=== PATIENT | male | born 1955 | race Caucasian/White ===

== ENCOUNTER → 2021-11-23 | Outpatient (CLI) | payer MEDICARE ==
[2021-11-23 12:09] LABS: BASOPHILS % (AUTO) 1.8 % (0.0-5.0); EOSINOPHILS % (AUTO) 3.7 % (0.0-8.0); HEMATOCRIT 31.9 % (42-54); LYMPHOCYTES % (AUTO) 18.3 % (21.0-51.0); MEAN CORPUSCULAR HEMOGLOBIN 20.9 pg (27.0-33.0); MEAN CORPUSCULAR HGB CONC 27.3 g/dL (32.0-36.0); MEAN CORPUSCULAR VOLUME 76.7 fL (79-99); MONOCYTES % (AUTO) 14.2 % (3.0-13.0); NEUTROPHILS % (AUTO) 61.7 % (40.0-77.0); PLATELET COUNT (AUTO) 294 K/uL (130-400); RED BLOOD CELL COUNT(AUTO) 4.16 MIL/uL (4.50-6.20); WHITE BLOOD COUNT (AUTO) 6.8 K/uL (4.8-10.8)
[2021-11-23 12:19] LABS: INR 1.03 (0.85-1.15); PROTHROMBIN TIME 11.2 SEC (9.6-11.6)
[2021-11-23 12:20] LABS: PARTIAL THROMBOPLASTIN TIME 25.1 SEC (26.3-35.5)
[2021-11-23 12:25] LABS: ALBUMIN 3.6 g/dL (3.5-5.0); BILIRUBIN,DIRECT 0.1 mg/dL (0.0-0.3); BILIRUBIN,TOTAL 0.2 mg/dL (0.2-1.0); CREATININE 0.9 mg/dL (0.5-1.5); POTASSIUM 4.6 mmol/L (3.5-5.1); TOTAL PROTEIN, SERUM 7.6 g/dL (6.0-8.3)
== END | disposition home or self-care (01) ==
LOC: LAB 11:25
PROVIDERS: ATTEND Nurse Practitioner Family
DX: C16.9 Malignant neoplasm of stomach, unspecified (principal); E66.9 Obesity, unspecified; R06.02 Shortness of breath
CPT/HCPCS: 36415; 80053; 80061; 82248; 82378; 85025; 85610; 85730

== ENCOUNTER → 2021-11-24 | Outpatient (CLI) | payer MEDICARE ==
[~2021-11-24] MED LIST: DIATR MEGLU/DIATRIZOATE SODIUM 30 ML BOTTLE ONE; IOHEXOL 350 MG/ML 100ML INFUS..BTL IV ONE
== END | disposition home or self-care (01) ==
LOC: RAH 07:02
PROVIDERS: ATTEND Surgery Surgical Oncology
DX: C16.9 Malignant neoplasm of stomach, unspecified (principal); K44.9 Diaphragmatic hernia without obstruction or gangrene; K57.30 Diverticulosis of large intestine without perforation or abscess without bleeding
CPT/HCPCS: 71260; 74177; Q9963; Q9967

== ENCOUNTER → 2023-02-28 | Outpatient (CLI) | payer MEDICARE | END | disposition home or self-care (01) | LOC: RAH 09:13 | PROVIDERS: ATTEND Student in an Organized Health Care Education/Training Program | DX: M47.816 Spondylosis without myelopathy or radiculopathy, lumbar region (principal); M51.36 Other intervertebral disc degeneration, lumbar region | CPT/HCPCS: 72148 ==

== ENCOUNTER → 2025-01-21 | Outpatient (CLI) | payer MEDICARE ==
--- NOTE | 2025-01-21 14:40 | HMCIMG ---
CT CHEST HIGH RESOLUTION (WO) HISTORY: Interstitial pulmonary disease COMPARISON: None TECHNIQUE: Multiple sequential axial images of the chest were obtained from the thoracic inlet through upper abdomen. Patient was not given contrast through intravenous route. High resolution images of the chest were obtained. FINDINGS: There are bilateral groundglass pulmonary infiltrates. There are interstitial fibrosis with bronchiectasis. Coronary arterial calcifications are seen No pleural effusion or pericardial effusion is seen. There is no evidence of pneumothorax. There are normal size mediastinal and hilar lymph nodes. The heart is not enlarged. Degenerative changes of the thoracolumbar spine are present. There is no evidence of adrenal nodule. There is a small hiatal hernia. Coronary arterial calcifications IMPRESSION: 1. Lateral groundglass pulmonary infiltrates. Interstitial fibrosis with bronchiectasis. CT was performed with one or more following dose reduction techniques: automated exposure control, adjustment of the mA and kv according to patient's size, or use of a iterative reconstruction technique.
== END | disposition home or self-care (01) ==
LOC: RAH 13:18
PROVIDERS: ATTEND Internal Medicine Pulmonary Disease
DX: J47.9 Bronchiectasis, uncomplicated (principal); J84.10 Pulmonary fibrosis, unspecified; R91.8 Other nonspecific abnormal finding of lung field; K44.9 Diaphragmatic hernia without obstruction or gangrene; I25.10 Atherosclerotic heart disease of native coronary artery without angina pectoris; J84.9 Interstitial pulmonary disease, unspecified; M47.815 Spondylosis without myelopathy or radiculopathy, thoracolumbar region
CPT/HCPCS: 71250

== ENCOUNTER 2025-10-09 10:27 | Emergency (ER) | payer MEDICARE ==
[~2025-10-09] VITALS: Ht 167.6 cm; Wt 50.8 kg
[2025-10-09] MEDS: 0.9%NACL 1000ML 1,000 ML IV ONE (11:00)
--- NOTE | 2025-10-09 11:00 | ERN ---
General Chief Complaint: Low Back Pain/Injury Stated Complaint: KIDNEY PAIN Time Seen by MD: 10:35 Source: patient History of Present Illness Initial Comments The patient is a 70-year-old male with past medical history of colorectal cancer who came to the ER with complain of bilateral flank pain. As per the patient, the patient was getting it therapy ABD for5 weeks for his cancer and due to the pain he was taking pain medication. Approximately 10 weeks back the patient developed severe bilateral flank pain. The pain is severe in nature and due to with the patient can not move. The patient is a established patient with Dr. Kenneth fried. Timing/Duration: getting worse Severity: severe Modifying Factors: improves with movement Associated Symptoms: loss of appetite, other Allergies: Coded Allergies: Tetracyclines (Unverified Allergy, Unknown, 10/09/25) Home Meds Active Scripts Oxycodone HCl/Acetaminophen (Oxycodone-Acetaminophen 10-325) 10 Mg-325 Mg Tablet, 1 TAB PO Q4HPRN PRN for pain for 10 Days, #40 TAB 0 Refills Prov:HUAN HAMMONDS 10/09/25 Past Medical History Past Medical History: Other Medical History Other: RECTAL TUMOR Past Surgical History: Other Surgical History Other: STOMACH REMOVAL Physical Exam General Appearance: (+) mild distress, (+) moderate distress Orientation: (+) alert, (+) oriented x 3 Head/Face Trauma: No Ear, Nose, Throat: (-) hearing grossly normal, (-) normal ENT inspection, (-) moist mucous membraine, (-) normal pharynx, (-) normal TM, (-) abnormal TM, (-) pharyngeal erythema, (-) sinus drainange, (-) sinus pain, (-) tonsillar exudate, (-) tonsillar swelling, (-) nasal drip, (-) nasal congestion, (-) hearing decreased, (-) dry mucous membraine, (-) other documentation Neck: (-) normal inspection, (-) supple, (-) full range of motion, (-) no JVD, (-) non-tender, (-) no bruit, (-) tender, (-) limited range of motion, (-) tender lateral, (-) tender midline, (-) thyromegaly, (-) lymphadenopathy, (-) masses, (-) carotid bruit, (-) other documentaion Respiratory: (-) chest non-tender, (-) lungs clear, (-) well ventilated, (-) decreased breath sounds, (-) retractions, (-) abnormal breath sound, (-) crackles, (-) plerual rub, (-) rales, (-) rhonchi, (-) stridor, (-) wheezing, (- ) other documentation Heart: (-) regular, (-) no gallop, (-) murmur, (-) irregular, (-) bradycardia, (-) tachycardia, (-) systolic murmur, (-) diastolic murmur, (-) extra beats, (-) friction rub, (-) gallop/S3, (-) gallop/S4, (-) other documentation Vascular: (-) no edema, (-) normal peripheral pulse, (-) no JVD, (-) abdominal aorta, (-) abnormal peripheral pulse, (-) carotid bruit, (-) edema, (-) JVD, (-) varicose vein, (-) other documentation Gastrointestinal: (-) soft, (-) non-tender, (-) no organomegaly, (-) bowel sound present, (-) distended, (-) tender, (-) abnormal bowel sounds, (-) bowel sound absent, (-) rebound, (-) brown's sign, (-) guarding, (-) hernia, (-) mass, (-) pulsatile mass, (-) CVA tenderness, (-) hepatomegaly, (-) spleenomegaly, (-) other documentation, (-) McBerney's, (-) other documentation Results Laboratory and Microbiology Lab and Micro Result Laboratory Tests Test 10/09/25 10:57 10/09/25 13:48 White Blood Count 5.5 K/uL (4.8-10.8) Red Blood Count 4.35 MIL/uL (4.50-6.20) L Hemoglobin 13.3 g/dL (14.0-18.0) L Hematocrit 40.0 % (42-54) L Mean Corpuscular Volume 92.0 fL (79-99) Mean Corpuscular Hemoglobin 30.6 pg (27.0-33.0) Mean Corpuscular Hemoglobin Concent 33.3 g/dL (32.0-36.0) Red Cell Distribution Width 21.3 % (11.0-15.5) H Platelet Count 224 K/uL (130-400) Mean Platelet Volume 10.5 fL (7.5-10.5) Nucleated Red Blood Cells 0.0 % (0.0-0.19) Red Blood Cell Morphology See comments Sodium Level 139 mmol/L (136-145) Potassium Level 4.1 mmol/L (3.5-5.1) Chloride Level 106 mmol/L (101-111) Carbon Dioxide Level 28 mmol/L (21-32) Blood Urea Nitrogen 15 mg/dL (7-18) Creatinine 1.0 mg/dL (0.5-1.3) Glomerular Filtration Rate Calc 80 mL/min (>90) Random Glucose 102 mg/dL (70-105) Lactic Acid Level 1.5 mmol/L (0.8-2.5) Total Calcium 8.2 mg/dL (8.5-10.1) L Urine Color LIGHT-YELLOW (YELLOW) Urine Appearance CLEAR (CLEAR) Urine pH 6.0 (5.0-8.0) Urine Specific [place] >1.040 (1.001-1.031) Urine Protein NEGATIVE mg/dL (NEGATIVE) Urine Glucose (UA) NEGATIVE mg/dL (NEGATIVE) Urine Ketones 5 mg/dL (NEGATIVE) H Urine Occult Blood NEGATIVE (NEGATIVE) Urine Nitrate NEGATIVE (NEGATIVE) Urine Bilirubin NEGATIVE mg/dL (NEGATIVE) Urine Urobilinogen 0.2 mg/dL (0.2-1.0) Urine Leukocyte Esterase NEGATIVE Rachell/uL Urine RBC 2-5 /HPF (0-1) H Urine WBC 2-5 /HPF (0-1) H Urine Squamous Epithelial Cells Rare /HPF (0-2) Urine Bacteria None Seen /HPF (None Seen) MDM MDM: Differential diagnosis: Cancer related pain, kidney stones Patient was seen and examined in the ER. The patient had bilateral flank pain for which a CT scan was done that was unremarkable. Patient's CBC, BMP, urinalysis were unremarkable. As per patient has a history of colorectal cancer the pain most likely associated with that The patient takes oxycodone/acetaminophen- 5mg/325mg for the pain. The patient was given the option to stay in the hospital for 24 hours or more for pain management that he can get IV pain medications that we can be discharged with a stronger pain med and follow up with Yolnada Wells. The patient preferred to get discharged with a stronger medication and follow up with the oncologist. The patient was discharged with oxycodone 10 mg/acetaminophen 325 mg ED Course Orders Procedure Category Date Status Time Cbc Without LAB 10/09/25 Complete Differential 10:50 Basic Metabolic Panel LAB 10/09/25 Complete 10:50 Urinalysis Profile LAB 10/09/25 Complete 10:50 0.9%Nacl 1000ml (Ns PHA 10/09/25 Complete 1000ml) 11:00 Hydromorphone 1 Mg PHA 10/09/25 Complete Inj (Dilaudid 1mg Inj 11:00 Ct Abdomen/Pelvis CT 10/09/25 Resulted W/Contrast 10:50 Lactic Acid LAB 10/09/25 Complete 10:56 Iohexol (Omnipaque) PHA 10/09/25 Complete 11:57 Current Medications Medications (Trade) Dose Ordered Sig/Romeo Route PRN Reason Start Time Stop Time Status Last Admin Dose Admin Hydromorphone HCl (DiLAUDid 1MG INJ) 1 mg ONCE ONCE IVP 10/09/25 11:00 10/09/25 11:01 DC 10/09/25 11:14 Iohexol (Omnipaque) 75 ml STK-MED ONCE IV 10/09/25 11:57 10/09/25 11:57 DC Sodium Chloride 1,000 ml @ 0 mls/hr ONCE ONCE IV 10/09/25 11:00 10/09/25 11:01 DC 10/09/25 11:00 Vital Signs Date Time Temp Pulse Resp B/P (MAP) Pulse Ox O2 Delivery O2 Flow Rate FiO2 10/09/25 14:56 98.1 68 19 135/72 99 Room Air* 0 21 10/09/25 11:02 98.4 71 16 118/70 100 Room Air* 0 21 10/09/25 10:28 98.2 91 20 98/71 99 Room Air DX & DISP Disposition: Discharge Departure Impression: Primary Impression: Cancer related pain Condition: Stable Scripts Oxycodone HCl/Acetaminophen (Oxycodone-Acetaminophen 10-325) 10 Mg-325 Mg Tablet 1 TAB PO Q4HPRN PRN for pain for 10 Days, #40 TAB 0 Refills Prov: HUAN HAMMONDS DO 10/09/25 Additional Instructions: *Follow up with your primary care physician in 2 - 3 days after discharge. *Continue all medications as prescribed. Do not discontinue or change dosages without consulting your PCP. *Gradually resume normal activities as tolerated. *Continue a balanced diet . Reduce salt intake to help manage BP. *Seek immediate medical attention if you experience chest pain, SOB or severe headache. *Follow up Dr Wells Referrals: DAMIÁN GALLO MD (PCP) I performed a substantive portion of the visit. I have reviewed and personally made and approve the management plan that is documented in the notes by myself with JUMA/resident. I acknowledged full responsibility for the patient's management plan. 70-year-old with a colon cancer recently had multiple bouts of radiation in his having pain since. The labs are unremarkable. CT scan are unremarkable. There was no neurologic compromise neurovascularly intact. Discussed the plan with the patient, I did offer him further admission for pain control and further evaluation, but he reports after IV Dilaudid as he feels much better. He is requesting that we increase his dose of hydrocodone. Patient will follow up with oncology in 48 hours. MALACHI WELCH MD Oct 09, 2025 11:00 HUAN HAMMONDS DO Oct 09, 2025 14:43
[2025-10-09 11:12] LABS: NUCLEATED RED BLOOD CELLS 0.0 % (0.0-0.19); PLATELET COUNT (AUTO) 224 K/uL (130-400); RED BLOOD CELL COUNT(AUTO) 4.35 MIL/uL (4.50-6.20); RED CELL DISTRIBUTION WIDTH 21.3 % (11.0-15.5); WHITE BLOOD COUNT (AUTO) 5.5 K/uL (4.8-10.8)
[2025-10-09 11:33] LABS: CREATININE 1.0 mg/dL (0.5-1.3); GLOMERULAR FILTR. RATE CALC 80.0 mL/min (>90); GLUCOSE,RANDOM 102.0 mg/dL (70-105); SODIUM SERUM 139.0 mmol/L (136-145); UREA NITROGEN, BLOOD 15.0 mg/dL (7-18)
[2025-10-09] MEDS ORDERED: IOHEXOL-350 75 ML VIAL IV ONE (11:57)
--- NOTE | 2025-10-09 13:32 | HMCIMG ---
EXAM: CT Abdomen and Pelvis with IV contrast CLINICAL HISTORY: Back/abdominal pain TECHNIQUE: Axial computed tomography images of the abdomen and pelvis with intravenous contrast. CONTRAST: with intravenous contrast. COMPARISON: None provided. FINDINGS: LUNG BASES: The lung bases appear clear. No pleural effusions are seen. LIVER: Unremarkable. GALLBLADDER AND BILE DUCTS: The gallbladder appears within normal limits. No radioopaque gallstones are seen. No biliary ductal dilatation is evident. PANCREAS: Unremarkable. SPLEEN: Unremarkable. ADRENAL GLANDS: Unremarkable. KIDNEYS, URETERS, AND BLADDER: Mild bladder wall thickening. Recommend correlation for cystitis. STOMACH AND BOWEL: Moderate stool burden in the colon. No bowel wall thickening. Postsurgical changes of the stomach. APPENDIX: No evidence of acute appendicitis on CT examination. PERITONEUM: No free fluid. No free air. LYMPH NODES: No lymphadenopathy is evident. REPRODUCTIVE: Unremarkable as visualized. VASCULATURE: Calcified and noncalcified atheromatous disease in the abdominal aorta BONES: Osteopenia. IMPRESSION: 1. Mild bladder wall thickening, possibly representing cystitis. Clinical correlation recommended. 2. No acute findings in the abdomen or pelvis. /Bobbi
[2025-10-09 14:13] LABS: ADD UA MICROSCOPIC YES; APPEARANCE,URINE CLEAR (CLEAR); GLUCOSE, URINE (UA) NEGATIVE (NEGATIVE); LEUKOCYTE ESTERASE ,URINE NEGATIVE Leu/uL (NEGATIVE); NITRATE,URINE NEGATIVE (NEGATIVE); OCCULT BLOOD,URINE NEGATIVE (NEGATIVE)
[2025-10-09 14:17] LABS: SQUAMOUS EPITHELIAL CELL,UR Rare /HPF (0-2)
[2025-10-09] MEDS ORDERED: OXYC1TAB12 PO (14:42)
[2025-10-09 14:56] VITALS: BP 135/72; PULSE 68; RESP 19; TEMP 98; O2SAT 99
--- NOTE | 2025-10-09 14:58 | NUR ---
DC PATIENT WAS DC'D BY DR HAMMONDS, I DC'D PATIENTS IV WITH CATH STILL INTACT AND APPLIED 2X2 GAUZE WITH COBAN I EXPLAINED TO PATIENT TO FOLLOW UP WITH PCP, PROVIDED INFO BASED ON DIAGNOSIS, PRESCRIPTIONS AND ANSWERED ANY FOLLOW UP QUESTIONS PATIENT AMBUALTED OUT OF ED, NO COMPLICATIONS
== END 2025-10-09 14:53 | disposition home or self-care (01) ==
LOC: EDH 10:27
DX: G89.3 Neoplasm related pain (acute) (chronic) (principal); R10.A3 Flank pain, bilateral; Z85.048 Personal history of other malignant neoplasm of rectum, rectosigmoid junction, and anus; Z88.1 Allergy status to other antibiotic agents
CPT/HCPCS: 99285; 74177; 96374; 96361; 80048; 85027; 83605; 81001; 36415; J1171; J7030; Q9967